=== PATIENT | female | born 1960 | race Caucasian/White ===

== ENCOUNTER 2019-12-03 18:46 | Emergency (ER) | payer BC ==
[~2019-12-03] VITALS: Ht 172.7 cm; Wt 61.2 kg
[2019-12-03 19:36] LABS: BASO # 0.1 10*3/uL (0.0-0.1); BASO % 0.5 % (0.0-1.0); EOS # 0.1 10*3/uL (0.0-0.4); EOS % 0.6 % (1.0-4.0); HEMATOCRIT 45.7 % (37.0-47.0); LYMPH % 19.1 % (27.0-41.0); MEAN CELL VOLUME 88.6 fl (81.0-99.0); MEAN CORPUSCULAR HGB 27.9 pg (27.0-31.0); MEAN CORPUSCULAR HGB CONC 31.5 g/dl (33.0-37.0); MEAN PLATELET VOLUME 9.7 fl (9.6-12.3); MONO # 0.4 10*3/uL (0.1-1.0); MONO % 3.9 % (3.0-9.0); NEUT % 75.6 % (47.0-73.0); PLATELET COUNT AUTOMATED 356 10*3/uL (130-400); RED BLOOD COUNT 5.16 10*6/uL (4.10-5.10); RED CELL DISTRI WIDTH 15.6 % (0-14.5); WHITE BLOOD COUNT 10.5 10*3/uL (4.8-10.8)
[2019-12-03 19:55] LABS: ALBUMIN 3.4 gm/dl (3.1-4.5); CREATININE 1.21 mg/dL (0.55-1.02); POTASSIUM 3.5 mmol/L (3.5-5.1); TROPONIN I 0.026 ng/ml (<0.045)
[2019-12-03] MEDS ORDERED: GLUCTESTSTRIP (23:20)
[2019-12-03] MEDS ORDERED: LISINOPRIL2.5 MG PO (23:20)
[2019-12-03] MEDS ORDERED: GLUCOPHAGE500 M1 PO (23:20)
[2019-12-03] MEDS ORDERED: ATIVAN0.5 MG PO (23:22)
[2019-12-03] MEDS ORDERED: AUGMENTIN 875875 MG PO (23:24)
== END 2019-12-04 00:13 | disposition home or self-care (01) ==
LOC: ED 18:46
PROVIDERS: Emergency Medicine
DX: H93.8X2 Other specified disorders of left ear (principal); G47.00 Insomnia, unspecified; N28.9 Disorder of kidney and ureter, unspecified; R73.9 Hyperglycemia, unspecified; I10 Essential (primary) hypertension